=== PATIENT | female | born 1950 | race Caucasian/White ===

== ENCOUNTER → 2018-01-14 11:28 | Outpatient (CLI) | payer MEDICARE, SELFPAY ==
--- NOTE | 2018-01-14 | DI.RAD.S_ITS ---
PROCEDURE: XR SINUS MIN 3V INDICATIONS: HYPERTENSION, OTHER ACUTE SINUSITIS TECHNIQUE: 3 views of the sinuses were acquired. COMPARISON: [facility], MR, BRAIN WITHOUT CONTRAST, 04/14/2011, 17:08. FINDINGS: Sinuses: Frontal sinuses are hypoplastic. No ethmoidal or sphenoidal densities identified. The right maxillary antrum appears clear. The left maxillary sinus is clouded and suspect for chronic sinusitis. There was minimal mucous membrane thickening in left maxillary sinus on prior MRI imaging. There is slight nasal septal deviation to the right. Mastoids appear to be clear. Bones: No suspicious bony lesions. Nasal septum is midline. IMPRESSION: 1. Probable left maxillary sinusitis. Suggest CT sinus series for further evaluation. Dictated by: James Rangel M.D. on 01/14/2018 at 12:01 Approved by: James Rangel M.D. on 01/14/2018 at 12:05
--- NOTE | 2018-01-14 | DI.RAD.S_ITS ---
PROCEDURE: XR CHEST 2V INDICATIONS: HYPERTENSION, OTHER ACUTE SINUSITIS TECHNIQUE: 2 views of the chest were acquired. COMPARISON: None. FINDINGS: Surgical changes and devices: None. Lungs and pleura: No pleural effusions or pneumothorax. Lungs are clear. Mediastinum: Mediastinal contours are normal. Heart size is normal. Bones and chest wall: No suspicious bony abnormalities. Soft tissues appear unremarkable. IMPRESSION: No acute cardiopulmonary disease. Dictated by: Edgardo Peace RRA Interpreted: Latisha Sullivan MD on 01/14/2018 at 11:50 Approved by: Latisha Sullivan M.D. on 01/14/2018 at 16:26
== END ==
PROVIDERS: PCP Family Medicine; Visit Provider Family Medicine
DX: J01.90 Acute sinusitis, unspecified (principal); I10 Essential (primary) hypertension
CPT/HCPCS: 70220; 71046

== ENCOUNTER → 2018-01-20 09:20 | Outpatient (CLI) | payer MEDICARE, SELFPAY ==
--- NOTE | 2018-01-20 | DI.CT.S_ITS ---
PROCEDURE: CT SINUS SCREEN WO CON INDICATIONS: SINUSITIS TECHNIQUE: Noncontrast 3.0 mm axial images acquired from the frontal sinuses to the mid-sella, with coronal and sagittal reformats. For radiation dose reduction, the following was used: automated exposure control, adjustment of mA and/or kV according to patient size. COMPARISON: None. FINDINGS: Image quality: Excellent. Maxillary Sinuses: No bony remodeling or destruction. Bilateral medial wall resection of the medial martell of bilateral maxillary sinuses as the performed. Mild maxillary sinus mucosal thickening bilaterally. Ethmoid Air Cells: No bony remodeling or destruction. Small retention cyst within the left mid ethmoid air cells. Sinuses are otherwise clear. Sphenoid Sinuses: No bony remodeling or destruction. Sinuses are clear. Frontal Sinuses: No bony remodeling or destruction. Sinuses are clear. Ostiomeatal Complexes: Ostiomeatal complexes are patent. No Peter cells. Miscellaneous: Visualized intra-orbital contents are normal. No turbinectomy has been performed. Aaron bullosa of the left inferior turbinate is present. No paradoxical turbinate curvature. No nasal septal deviation. IMPRESSION: 1. Postsurgical sequelae. 2. Mild maxillary sinus mucosal thickening bilaterally. 3. Left inferior turbinate aaron bullosa. Dictated by: Namrata Gomez M.D. on 01/20/2018 at 10:23 Approved by: Namrata Gomez M.D. on 01/20/2018 at 10:26
== END ==
PROVIDERS: PCP Family Medicine; Visit Provider Family Medicine
DX: J32.9 Chronic sinusitis, unspecified (principal); J34.89 Other specified disorders of nose and nasal sinuses
CPT/HCPCS: 70486

== ENCOUNTER → 2020-04-30 12:55 | Outpatient (CLI) | payer MEDICARE, SELFPAY ==
--- NOTE | 2020-04-30 | DI.RAD.S_ITS ---
PROCEDURE: XR KNEE LT 3V INDICATIONS: LEFT KNEE PAIN TECHNIQUE: 3 views of the knee were acquired. COMPARISON: None. FINDINGS: Bones: No fractures or dislocations. Tricompartmental degenerative changes of the left knee with mild medial joint space narrowing. Degenerative changes noted in the medial patellofemoral compartment. No suspicious bony lesions. Soft tissues: Small joint effusion. No suspicious soft tissue calcifications. IMPRESSION: Tricompartmental osteoarthrosis of the left knee. No acute osseous abnormalities. Small joint effusion. Dictated by: Volodymyr Ramirez M.D. on 04/30/2020 at 16:58 Approved by: Volodymyr Ramirez M.D. on 04/30/2020 at 16:59
== END ==
PROVIDERS: PCP Family Medicine; Referring Provider Family Medicine; Visit Provider Family Medicine
DX: M25.562 Pain in left knee (principal); M17.12 Unilateral primary osteoarthritis, left knee; M25.462 Effusion, left knee
CPT/HCPCS: 73562

== ENCOUNTER 2021-01-27 16:20 | Emergency (ER) | payer MEDICARE, SELFPAY ==
[2021-01-27 16:43] VITALS: BP 185/81; PULSE 91; RESP 16; TEMP 36.7; O2SAT 99; BMI 32.3
--- NOTE | 2021-01-27 18:28 | ED_ITS ---
HPI - Back Pain/Injury General Chief Complaint: Back Pain/Injury Stated Complaint: low back/left leg pain to toes Time Seen by Provider: 01/27/21 18:07 History of Present Illness HPI Narrative: 70-year-old female nonsmoker with noncontributory medical history presents with her in the chief complaint of worsening pain in her left lower back with radiation down her left leg. She denies any specific injury or trauma. She states that it started the morning after she had been lifting some objects on her deck but nothing was too heavy and she does not remember any specific event. She has worsening pain with motion and improves with rest. She states it is sharp and stabbing pain that radiates down her leg. She denies any numbness, tingling or weakness. She denies any loss of control of bowel or bladder, extremity weakness or footdrop. She takes no blood thinners and denies any fever or chills. Related Data Previous Rx's Medication Instructions Recorded cyclobenzaprine 10 mg tablet 10 mg PO TID PRN #14 tab 01/27/21 gabapentin 300 mg capsule 300 mg PO BEDTIME #14 cap 01/27/21 hydrocodone 5 mg-acetaminophen 325 1 tab PO Q4-6H PRN #10 tab 01/27/21 mg tablet prednisone 10 mg tablet See Rx Instructions .ROUTE 01/27/21 .COMPLEX #30 tab Allergies Allergy/AdvReac Type Severity Reaction Status Date / Time No Known Drug Allergies Allergy Verified 01/27/21 16:47 Review of Systems Review of Systems Narrative: GENERAL: Denies chills, fatigue, malaise, fever, sweats. HEENT: Denies sinus pain, ear pain, sore throat, difficulty swallowing, dizziness. RESPIRATORY: Denies dyspnea, cough, wheezing, hemoptysis, sputum. CARDIOVASCULAR: Denies chest pain, palpitations, orthopnea, edema, GASTROINTESTINAL: Denies nausea, vomiting, abdominal pain, diarrhea, constipation, melena. : Denies dysuria, frequency, incontinence, hematuria, urinary retention. MUSCULOSKELETAL: See HPI SKIN: Denies rash, skin lesions, or other NEUROLOGIC: See HPI PSYCHIATRIC: No concerning psychosocial issues. 12 point review of systems is negative except for those stated above Exam Narrative Exam Narrative: GENERAL: [70] year old patient appears stated age. Well- developed patient, in mild distress. Obviously uncomfortable, rubbing her lower back HEAD: Atraumatic. Normocephalic. EYES: Pupils equal round and reactive. Extraocular motions intact. No scleral icterus. No injection or drainage. ENT: Nose without bleeding, purulent drainage. Throat without erythema, tonsillar hypertrophy or exudate. Airway patent. NECK: Trachea midline. Non tender CARDIOVASCULAR: Regular rate and rhythm without murmurs, gallops, or rubs. RESPIRATORY: Clear to auscultation. Breath sounds equal bilaterally. No wheezes, rales, or rhonchi. GASTROINTESTINAL: Abdomen soft, non-tender, nondistended. EXTREMITIES: No edema or joint tenderness. BACK: molding machine tender but free of any obvious external abnormalities. Patient exam notes decreased range of motion and muscle spasm, but no CVA tenderness, or vertebral point tenderness. There are no symptoms of cauda equina such as saddle anesthesia, and decreased reflexes, decreased sensation or strength. NEURO: AOx3. SKIN: No rash or erythema of visible areas Initial Vital Signs Initial Vital Signs: Vital Signs Temperature 98.1 F 01/27/21 16:43 Pulse Rate 91 H 01/27/21 16:43 Respiratory Rate 16 01/27/21 16:43 Blood Pressure 185/81 H 01/27/21 16:43 Pulse Oximetry 99 01/27/21 16:43 Course Orders Ordered: Discontinued Medications Hydrocodone Bitart/Acetaminophen (Hydrocodone/Acet 5/325 Tablet) 1 tab PO NOW ONE Stop: 01/27/21 18:41 Prednisone (Prednisone 20 Mg Tablet) 40 mg PO NOW ONE Stop: 01/27/21 18:41 Vital Signs Vital signs: Vital Signs - 8 hr 01/27/21 16:43 Temperature 98.1 F Pulse Rate 91 H Respiratory Rate 16 Blood Pressure 185/81 H Pulse Oximetry 99 MDM - Back Pain/Injury MDM Narrative Medical decision making narrative: Multiple etiologies of back pain considered including; Epidural abscess, cauda equina, mass occupying lesion, and other considered Discharge Plan Departure Patient Disposition: Home Clinical Impression: Acute back pain with radiculopathy Instructions: DI for Back Pain With Sciatica Activity Restrictions/Additional Instructions: *You have been diagnosed with [acute lumbar pain with radiculopathy] *What to do: *Please continue to take your regular medications as directed. [ x] New medication prescriptions sent to your pharmacy: [[facility] in [place]] [ ] New medication written as a paper prescription [ ] No new medications given *Please follow up with your primary care provider in 2-3 days, call for an appointment. Let them know you were seen in the Emergency Department and that we ask that you be seen in follow up. We will electronically transmit a record of today's note if your PCP is in our system *If you do not have a primary care provider please contact the [facility] Resource line at [phone]. They will ask some questions about your medical history and help get you set up with a doctor in the community. *Return to Emergency Department if you should have any new, worsening or concerning symptoms, such as [fever greater than 101 F, shaking chills, worsening pain, p loss of control of bowel or bladder, weakness in your extremities or other bothersome symptoms Prescriptions: New cyclobenzaprine 10 mg tablet 10 mg PO TID PRN (Reason: muscle spasm) Qty: 14 RF: 0 prednisone 10 mg tablet See Rx Instructions .ROUTE .COMPLEX Qty: 30 RF: 0 hydrocodone-acetaminophen 5-325 mg tablet 1 tab PO Q4-6H PRN (Reason: pain) Qty: 10 RF: 0 gabapentin 300 mg capsule 300 mg PO BEDTIME Qty: 14 RF: 0 Referrals: Jairon Lindsay MD [Primary Care Provider] -
[2021-01-27] MEDS: HYDROCODONE/ACET 5/325 TABLET 1 TAB PO (18:48)
[2021-01-27] MEDS: predniSONE 20 MG TABLET 40 MG PO (18:49)
[2021-01-27] MEDS: CYCLOBENZAPRINE 10 MG TABLET PO (19:50)
[2021-01-27] MEDS: CYCLOBENZAPRINE 10 MG PREPACK 1 BOTTLE MISC (20:20)
[2021-01-27] MEDS: OXYCODONE/APAP 5/325 PREPACK 1 BOTTLE MISC (20:20)
== END 2021-01-27 20:25 | disposition home or self-care (01) ==
PROVIDERS: Emergency Provider Emergency Medicine; PCP Family Medicine
DX: M54.16 Radiculopathy, lumbar region (principal)
CPT/HCPCS: 99283

== ENCOUNTER → 2021-01-31 14:12 | Outpatient (CLI) | payer MEDICARE, SELFPAY ==
--- NOTE | 2021-01-31 14:15 | DI.RAD.S_ITS ---
PROCEDURE: XR HIP W PEL IF DONE LT 2V INDICATIONS: LOW BACK PAIN TECHNIQUE: AP pelvis with lateral view(s) of the left hip(s). COMPARISON: None. FINDINGS: Bones: No fractures or dislocations. Pelvic ring appears intact. No suspicious bony lesions. Soft tissues: The visualized bowel gas pattern is normal. No suspicious soft tissue calcifications. IMPRESSION: Normal for age, source of current back pain symptoms is not seen. Dictated by: Aston Link M.D. on 01/31/2021 at 16:53 Approved by: Aston Link M.D. on 01/31/2021 at 16:53
--- NOTE | 2021-01-31 14:15 | DI.RAD.S_ITS ---
PROCEDURE: XR LUMBAR SPINE 2-3V INDICATIONS: LOW BACK PAIN TECHNIQUE: 3 views of the lumbar spine were acquired. COMPARISON: None. FINDINGS: Bones: 5 [id number]-[id number] vertebrae are present. There is abnormal bony alignment at L5-S1 where grade 2 anterolisthesis of L5 is present related to degenerative facet osteoarthritis and disc height reduction allowing ligamentous laxity at this level.. No vertebral body compression fractures. No suspicious bony lesions. Soft tissues: Overlying bowel gas pattern is normal. No suspicious soft tissue calcifications. IMPRESSION: Mild degenerative disc disease to the L5-S1 level where moderately severe disc height reduction is associated with facet osteoarthritis and anterior subluxation of L5 on S1, grade 2. Significant spinal and foraminal stenosis would be expected at this level and likely is also present at L4-5. Dictated by: Aston Link M.D. on 01/31/2021 at 16:51 Approved by: Aston Link M.D. on 01/31/2021 at 16:52
== END ==
PROVIDERS: PCP Family Medicine; Referring Provider Family Medicine; Visit Provider Family Medicine
DX: M51.27 Other intervertebral disc displacement, lumbosacral region (principal); M47.817 Spondylosis without myelopathy or radiculopathy, lumbosacral region
CPT/HCPCS: 72100; 73502

== ENCOUNTER → 2022-01-23 14:14 | Outpatient (CLI) | payer MEDICARE, SELFPAY ==
--- NOTE | 2022-01-23 | DI.RAD.S_ITS ---
PROCEDURE: XR SHOULDER LT MIN 2V INDICATIONS: Other specific arthropathies, not elsewhere classified, mult TECHNIQUE: 3 views of the shoulder were acquired. COMPARISON: None. FINDINGS: Bones: No fractures or dislocations. No suspicious bony lesions. Visualized ribs appear intact. Mild acromioclavicular and glenohumeral joint osteoarthritis. Soft tissues: No suspicious soft tissue calcifications. IMPRESSION: Mild osteoarthritis. No acute osseous lesion. If symptoms and/or clinical suspicion for pathology persists, further assessment with repeat radiographs (7-10 days) or advanced imaging (e.g. CT, MRI or bone scan) should be considered. Dictated by: Angelina Gonzáles MD, PhD on 01/23/2022 at 15:19 Approved by: Angelina Gonzáles MD, PhD on 01/23/2022 at 15:20
--- NOTE | 2022-01-23 | DI.RAD.S_ITS ---
PROCEDURE: XR FINGER RT MIN 2V INDICATIONS: Other specific arthropathies, not elsewhere classified, mult TECHNIQUE: AP hand, 2 views of the right hand fifth digit acquired. COMPARISON: None. FINDINGS: Bones: Joint space narrowing and spurring present at the at the 5th digit DIP joint. A small periarticular lucency is also present in this area. Similar changes present at other joints including the second digit DIP joint. No acute fracture visualized. Soft tissues: No suspicious soft tissue calcifications. IMPRESSION: Degenerative changes present at the 5th digit DIP joint. A small periarticular lucency is present indeterminate for subchondral cystic change or erosion. Inflammatory arthropathy cannot be excluded. Dictated by: Ti Vargas M.D. on 01/23/2022 at 17:49 Approved by: Ti Vargas M.D. on 01/23/2022 at 17:52
== END ==
PROVIDERS: PCP Family Medicine; Referring Provider Family Medicine; Visit Provider Family Medicine
DX: M75.52 Bursitis of left shoulder (principal); M12.89 Other specific arthropathies, not elsewhere classified, multiple sites
CPT/HCPCS: 73030; 73140

== ENCOUNTER → 2022-04-21 15:52 | Outpatient (CLI) | payer MEDICARE, SELFPAY ==
--- NOTE | 2022-04-21 15:54 | DI.MRI.S_ITS ---
PROCEDURE: MR SHOULDER LT WO CON INDICATIONS: Primary osteoarthritis, left shoulder TECHNIQUE: Noncontrast oblique coronal T2 fast spin echo with fat saturation, oblique sagittal T1 spin echo and T2 fast spin echo with fat saturation, axial T1 spin echo and T2 fast spin echo with fat saturation through the shoulder. COMPARISON: None. FINDINGS: Image quality: Excellent. Rotator cuff: There is focal high-grade likely full-thickness tearing of the supraspinatus tendon at the anterior footprint measuring 6 mm in anterior-posterior dimension. Mild proximal tendon retraction measures up to 5 mm. Moderate supraspinatus and infraspinatus tendinosis is seen. The teres minor tendon is intact. The subscapularis tendon also appears to be intact. No significant rotator cuff muscle atrophy. Bones and bursae: No acute trabecular bone injury or fracture. Small chronic traction cystic changes are seen in the posterosuperior humeral head. No focal glenohumeral cartilage defect. Moderate degenerative changes are seen at the acromioclavicular joint with marginal osteophyte formation and subchondral cystic changes. There is a small amount of subacromial/subdeltoid bursal fluid. No significant glenohumeral joint effusion is seen. Capsule and soft tissues: Suspected nondisplaced tearing of the posterosuperior to posteroinferior labrum, which is likely chronic. The proximal biceps long head tendon appears to be intact. There is partial effacement of the normal fat signal in the rotator interval. Glenohumeral ligaments are grossly intact. IMPRESSION: 1. Focal full-thickness tearing of the supraspinatus tendon at the anterior footprint measuring 6 mm in anterior-posterior dimension with mild proximal tendon retraction measuring 5 mm. Moderate supraspinatus and infraspinatus tendinosis. 2. 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 3. Moderate acromioclavicular joint osteoarthrosis. 4. Small subacromial/subdeltoid bursal effusion or bursitis. Dictated by: Ti Rivera M.D. on 04/22/2022 at 12:12 Approved by: Ti Rivera M.D. on 04/22/2022 at 12:18
== END ==
PROVIDERS: PCP Family Medicine; Referring Provider Orthopaedic Surgery; Visit Provider Orthopaedic Surgery
DX: M75.122 Complete rotator cuff tear or rupture of left shoulder, not specified as traumatic (principal); M19.012 Primary osteoarthritis, left shoulder
CPT/HCPCS: 73221

== ENCOUNTER → 2022-11-27 09:21 | Outpatient (CLI) | payer MEDICARE, SELFPAY ==
--- NOTE | 2022-11-27 | DI.US.S_ITS ---
PROCEDURE: US ABDOMEN COMPLETE INDICATIONS: ABNORMAL SERUM ENZYME LEVEL TECHNIQUE: Real-time scanning was performed of the abdominal and retroperitoneal organs, with image documentation. COMPARISON: None. FINDINGS: Liver: The liver is normal size measuring 16.9 cm in length. The parenchyma is mildly hyperechoic and dense. No visible liver mass. Appropriate direction of flow in the portal vein. Gallbladder: The gallbladder is normal without stones, sludge, wall thickening, or pericholecystic fluid. Biliary ducts: Intrahepatic bile ducts are non-dilated. Extrahepatic bile duct caliber measures 4.5 mm. Normal is 6-7 mm or less in diameter, or 10 mm or less post-cholecystectomy. Pancreas: Visualized portions of the pancreas are sonographically normal. The tail is obscured by bowel gas. Spleen: Spleen is normal in size and homogeneous in echotexture. Kidneys: Kidneys are normal in size and echotexture. Right kidney measures 9.7 cm long; left kidney measures 9.7 cm long. No hydronephrosis or nephrolithiasis. No solid masses. Aorta: Visualized aorta is normal in caliber at less than 3 cm. Iliacs: Proximal common iliac arteries are normal in caliber at less than 2.5 cm. IVC: Intrahepatic inferior vena cava is patent. Miscellaneous: No free abdominal fluid. IMPRESSION: 1. Mild hepatic parenchymal echogenicity suggesting steatosis or other intrinsic liver disease. 2. Normal biliary tree to the extent it is visualized. 3. Suboptimal visualization of the distal pancreas due to bowel gas. Dictated by: Chapis Land M.D. on 11/27/2022 at 14:21 Approved by: Chapis Land M.D. on 11/27/2022 at 14:24
--- NOTE | 2022-11-27 | DI.RAD.S_ITS ---
PROCEDURE: XR CHEST 2V INDICATIONS: chest pain TECHNIQUE: 2 views of the chest were acquired. COMPARISON: [facility], CR, XR CHEST 2V, 01/14/2018, 11:17. FINDINGS: Surgical changes and devices: Left humeral head surgical anchor. Lungs and pleura: Lungs are clear. No pleural effusions or pneumothorax. Mediastinum: Mediastinal contours are normal. Heart size is normal. Bones and chest wall: No suspicious bony abnormalities. Soft tissues appear unremarkable. IMPRESSION: No acute cardiopulmonary abnormality. Dictated by: Ti Vargas M.D. on 11/27/2022 at 11:25 Approved by: Ti Vargas M.D. on 11/27/2022 at 11:27
== END ==
PROVIDERS: PCP Family Medicine; Referring Provider Family Medicine; Visit Provider Family Medicine
DX: R07.9 Chest pain, unspecified (principal); R74.9 Abnormal serum enzyme level, unspecified
CPT/HCPCS: 71046; 76700

== ENCOUNTER 2023-02-23 16:37 | Emergency (ER) | payer MEDICARE, SELFPAY ==
[2023-02-23 17:04] VITALS: BP 152/70; PULSE 82; RESP 19; TEMP 36.8; O2SAT 96; BMI 33.3
--- NOTE | 2023-02-23 17:09 | DI.US.S_ITS ---
PROCEDURE: US PERIPH VENOUS LOW EXTREM LT INDICATIONS: r/o dvt TECHNIQUE: Real-time imaging, as well as color and pulse Doppler interrogation, were performed of the lower extremity deep veins from the inguinal ligament to the popliteal fossa. COMPARISON: None. FINDINGS: The common femoral, femoral and popliteal veins are normally compressible, and free of intraluminal thrombus. Color and pulse Doppler demonstrate normal phasic intraluminal flow. There is normal augmentation response to distal compression maneuver. IMPRESSION: No deep venous thrombosis. Dictated by: Maryjane Diggs M.D. on 02/23/2023 at 17:45 Approved by: Maryjane Diggs M.D. on 02/23/2023 at 17:48
--- NOTE | 2023-02-23 17:46 | ED_ITS ---
HPI - Extremity Problem <Lisa Farley PA-C - Last Filed: 02/23/23 18:56> General Chief complaint: Extremity Problem,Nontraumatic Stated complaint: lt leg pain / swelling Time Seen by Provider: 02/23/23 17:15 Source: patient Mode of arrival: Family Vehicle History of Present Illness HPI Narrative: 72-year-old woman presents with concern for left leg swelling and pain. Patient states that she normally walks a few miles a day and is fairly active, she was in [facility] with family on Wednesday and they went for about a mi or mi and half hike she does not remember sustaining any specific injuries but about an hour after the hike she felt pain in her left calf it felt very much like a cramp to her and was intense and sharp. This gradually resolved but has continued to be painful, it is worse with walking and pressing on the area. She feels that the pain has gradually been improving but yesterday noticed that her left calf seem to be swollen compared to her right. She talked to her primary care provider about it who recommended she come in for further evaluation for possible DVT. She denies any shortness of breath, chest pain, redness, heat in the area or any other symptoms. Related Data Previous Rx's Medication Instructions Recorded cyclobenzaprine 10 mg tablet 10 mg PO TID PRN muscle spasm #14 01/27/21 tabs gabapentin 300 mg capsule 300 mg PO BEDTIME #14 caps 01/27/21 hydrocodone 5 mg-acetaminophen 325 1 tab PO Q4-6H PRN pain #10 tabs 01/27/21 mg tablet prednisone 10 mg tablet See Rx Instructions .Route 01/27/21 .COMPLEX #30 tabs diclofenac sodium 1 % topical gel 4 g topical QID 10 days #100 grams 02/23/23 Allergies Allergy/AdvReac Type Severity Reaction Status Date / Time erythromycin base AdvReac Abdominal Verified 02/23/23 17:08 Pain Review of Systems <Lisa Farley PA-C - Last Filed: 02/23/23 18:56> Review of Systems Narrative: See HPI Patient History <Lisa Farley PA-C - Last Filed: 02/23/23 18:56> Social History Smoking Status: Never smoker Smoking Status: Never smoker alcohol intake frequency: holidays/special occasions only Substance Use Type: does not use Exam <Lisa Farley PA-C - Last Filed: 02/23/23 18:56> Narrative Exam Narrative: GENERAL: [72] year old patient appears stated age. Obese Well-developed patient, in mild distress. HEAD: Atraumatic. Normocephalic. EYES: Pupils equal round and reactive. Extraocular motions intact. No scleral icterus. No injection or drainage. ENT: Nose without bleeding, purulent drainage. Airway patent. NECK: Trachea midline. CARDIOVASCULAR: Regular rate and rhythm without murmurs, gallops, or rubs. RESPIRATORY: Clear to auscultation. Breath sounds equal bilaterally. No wheezes, rales, or rhonchi. GASTROINTESTINAL: Abdomen soft, non-tender, nondistended. EXTREMITIES: The left leg [id number] is moderately swollen as compared to the right, measured at 10 cm below the tibial tuberosity the left calf circumference is 41.5 cm the right calf circumference is 39.5 cm patient has tenderness with palpation over the mid posterior calf, she has normal active range of motion of the knee and ankle. There is no appreciable heat or erythema at the site of patient's tenderness or of the left affected calf. No other edema or joint tenderness. NEURO: AOx3. SKIN: No rash or erythema of visible areas Initial Vital Signs Initial Vital Signs: Vital Signs Temperature 98.3 F 02/23/23 17:04 Pulse Rate 82 02/23/23 17:04 Respiratory Rate 19 02/23/23 17:04 Blood Pressure 152/70 H 02/23/23 17:04 Pulse Oximetry 96 02/23/23 17:04 Oxygen Delivery Method Room Air 02/23/23 17:04 <Mahnaz Colin MD - Last Filed: 02/24/23 07:30> Initial Vital Signs Initial Vital Signs: Vital Signs Temperature 98.3 F 02/23/23 17:04 Pulse Rate 82 02/23/23 17:04 Respiratory Rate 19 02/23/23 17:04 Blood Pressure 152/70 H 02/23/23 17:04 Pulse Oximetry 96 02/23/23 17:04 Oxygen Delivery Method Room Air 02/23/23 17:04 Course <Lisa Farley PA-C - Last Filed: 02/23/23 18:56> Orders Ordered: ED Orders 02/23/23 17:09 US periph venous low extrem lt Stat Vital Signs Vital signs: Vital Signs - 8 hr 02/23/23 17:04 Temperature 98.3 F Pulse Rate 82 Respiratory Rate 19 Blood Pressure 152/70 H Pulse Oximetry 96 Oxygen Delivery Method Room Air <Mahnaz Colin MD - Last Filed: 02/24/23 07:30> Orders Ordered: ED Orders 02/23/23 17:09 US periph venous low extrem lt Stat Vital Signs Vital signs: Vital Signs - 8 hr 02/23/23 17:04 Temperature 98.3 F Pulse Rate 82 Respiratory Rate 19 Blood Pressure 152/70 H Pulse Oximetry 96 Oxygen Delivery Method Room Air MDM - Extremity (Nontraumatic) <ERIC Soliz-Ammy - Last Filed: 02/23/23 18:56> Imaging Data US - DVT: Radiologist's Impression: [address] [address] Ultrasound Report Signed Patient: Flores Alvarez MR#: [id number] : 1950 Acct:[id number] Age/Sex: 72 / F Date of Service: 02/23/23 Loc: ED Accession Number: [id number] ?? Procedure: US periph venous low extrem lt Ordering Provider: Leonid Galo MD PROCEDURE:? US PERIPH VENOUS LOW EXTREM LT ? INDICATIONS:? r/o dvt ? TECHNIQUE:? Real-time imaging, as well as color and pulse Doppler interrogation, were performed of the lower extremity deep veins from the inguinal ligament to the popliteal fossa.? ? COMPARISON:? None. ? FINDINGS:? The common femoral, femoral and popliteal veins are normally compressible, and free of intraluminal thrombus.? Color and pulse Doppler demonstrate normal phasic intraluminal flow.? There is normal augmentation response to distal compression maneuver. ? ? IMPRESSION:? No deep venous thrombosis. ? ? Dictated by: Maryjane Diggs M.D. on 02/23/2023 at 17:45 ? ? Approved by: Maryjane Diggs M.D. on 02/23/2023 at 17:48?? MDM Narrative Medical decision making narrative: This is a 72-year-old woman who presents with concern for possible DVT with left calf pain and swelling since Wednesday after hiking. Patient walks regularly and did not walk more than her usual on Wednesday. Pain began with a sharp sensation in her calf that felt a bit like cramping, but resolved on its own gradually has been improving but worse with walking, claudication is considered, she did have a DVT ultrasound which returned negative, I suspect that she has a muscle strain based on exam and history, she is seeing her primary care provider in the next 1-2 days and she is advised to discuss next steps with him. Patient does take ibuprofen as needed and she is advised she can take Tylenol and ibuprofen, also encouraged to try diclofenac to see if this relieves symptoms, consider compression stocking, continue with elevation of the leg whenever she is at rest and advised activity as tolerated. X-rays are not obtained today, she has no knee pain and no known injury. She does have a history of previous left ankle injury and chronic mild left ankle swelling. Return precautions provided, follow-up plan discussed, all questions answered. Discharge Plan Departure Patient Disposition: Home Clinical Impression: Muscle strain, Pain of left calf Activity Restrictions/Additional Instructions: *You have been diagnosed with [calf pain, likely muscle strain] *What to do: *Please continue to take your regular medications as directed. [1] New medication prescriptions sent to your pharmacy: [Diclofenac] [ ] New medication written as a paper prescription [ ] No new medications given *Please follow up with your primary care provider in 2-3 days, call for an appointment. Let them know you were seen in the Emergency Department and that we ask that you be seen in follow up. We will electronically transmit a record of today's note if your PCP is in our system. You came in today with concern for left calf pain and swelling, we did ultrasound to evaluate for DVT which returned negative. Based on her history and exam I suspect that you have a muscle injury/soft tissue injury. As we discussed you can take Tylenol and ibuprofen, I also prescribed diclofenac gel for your which is also available [id number], I am glad you are seeing your primary care provider in the next few days, I recommend talking to them about next steps I expect that these symptoms will resolve on their own in the next 7-10 days if this is just muscular soft tissue but if you have persistent pain or symptoms of course it is important to get re-evaluated and possibly have additional imaging done. *If you do not have a primary care provider please contact the [facility] Resource line at [phone]. They will ask some questions about your medical history and help get you set up with a doctor in the community. *Return to Emergency Department if you should have any new, worsening or concerning symptoms, such as [fever greater than 101 F, shaking chills, worsening pain, persistent vomiting or other bothersome symptoms] Prescriptions: New diclofenac sodium 1 % gel 4 g topical QID 10 Days Qty: 100 0RF Rx Instructions: apply to single knee, ankle, foot; for foot includes sole/toes/top of foot No Action cyclobenzaprine 10 mg tablet 10 mg PO TID PRN (Reason: muscle spasm) Qty: 14 0RF prednisone 10 mg tablet See Rx Instructions .ROUTE .COMPLEX Qty: 30 0RF Rx Instructions: Day 1,2,3: 40mg PO Daily Day 4,5,6: 30mg PO Daily Day 7,8,9: 20mg PO Daily Day 10,11,12: 10mg PO Daily #30 hydrocodone-acetaminophen 5-325 mg tablet 1 tab PO Q4-6H PRN (Reason: pain) Qty: 10 0RF gabapentin 300 mg capsule 300 mg PO BEDTIME Qty: 14 0RF Referrals: Jairon Lindsay MD [Primary Care Provider] - Stand Alone Forms: Patient Portal/API <Mahnaz Colin MD - Last Filed: 02/24/23 07:30> Cosign ED Attending Sylvesterature Attestation: I was immediately available in the department for consultation throughout this patient's visit. Mahnaz Colin MD
== END 2023-02-23 18:57 | disposition home or self-care (01) ==
PROVIDERS: Emergency Provider Student in an Organized Health Care Education/Training Program; PCP Family Medicine; Referring Provider Family Medicine
DX: S86.912A Strain of unspecified muscle(s) and tendon(s) at lower leg level, left leg, initial encounter (principal); M79.605 Pain in left leg
CPT/HCPCS: 93971; 99283

== ENCOUNTER → 2023-02-25 13:53 | Outpatient (CLI) | payer MEDICARE, SELFPAY ==
--- NOTE | 2023-02-25 | DI.RAD.S_ITS ---
PROCEDURE: XR TIBIA FIBULA LT 2V INDICATIONS: Pain in left leg TECHNIQUE: 2 views of the tibia and fibula were acquired. COMPARISON: None. FINDINGS: Bones: No fractures or dislocations. No suspicious bony lesions. Soft tissues: No suspicious soft tissue calcifications or masses. IMPRESSION: No acute osseous abnormality. Dictated by: Latisha Sullivan M.D. on 02/25/2023 at 21:11 Approved by: Latisha Sullivan M.D. on 02/25/2023 at 21:12
== END ==
PROVIDERS: PCP Family Medicine; Referring Provider Family Medicine; Visit Provider Family Medicine
DX: M79.605 Pain in left leg (principal)
CPT/HCPCS: 73590

== ENCOUNTER → 2024-02-03 07:06 | Outpatient (CLI) | payer MEDICARE, SELFPAY ==
--- NOTE | 2024-02-03 07:09 | DI.US.S_ITS ---
PROCEDURE: US PELVIC COMPLETE INDICATIONS: Pelvic and perineal pain TECHNIQUE: Real-time scanning was performed of the pelvic organs, with image documentation. Additional endovaginal scanning was necessary due to incomplete visualization of the adnexal and endometrial structures by transabdominal scanning. COMPARISON: None. FINDINGS: Uterus: Uterus is retroverted and normal in size at 5.3 x 2.9 x 4.1 cm. The myometrium is homogeneous. The endometrium measures 3 mm combined thickness. Trace fluid within the endometrium measuring 2 mm in thickness. Likely complex nabothian cyst measuring 9 x 5 x 8 mm within the cervix. Ovaries: The right ovary measures 1.4 x 0.9 x 1.0 cm, with a calculated ovarian volume of 0.7 cc. Right ovary is normal in appearance. The left ovary is not seen. No neck is a masses. Other: No pathologic free abdominal or pelvic fluid. IMPRESSION: No cause for patient's pain is identified. Likely complex nabothian cyst measuring 9 mm. Recommend follow-up ultrasound in 3-6 months to assess stability. Endometrium is normal in thickness. Trace fluid within the endometrium. Right ovary is normal in appearance. Left ovary is not seen. We strive to produce accurate, complete, and clear reports of imaging services. To assist us in improving patient care, this report was composed using standard report templates and voice recognition software. Therefore, it may contain abnormal punctuation, insertions and/or omissions. Occasional wrong-word or sound-alike substitutions may occur. Though we review the report and make efforts to correct it, we do recommend that the report be read carefully in proper context to recognize any text inaccuracies. Dictated by: Gregory Davidson M.D. on 02/03/2024 at 9:34 Approved by: Gregory Davidson M.D. on 02/03/2024 at 9:36
== END ==
LOC: US 07:09
PROVIDERS: PCP Family Medicine; Referring Provider Family Medicine; Visit Provider Family Medicine
DX: R10.2 Pelvic and perineal pain (principal)
CPT/HCPCS: 76856

== ENCOUNTER → 2024-06-16 06:28 | Outpatient (CLI) | payer MEDICARE, SELFPAY ==
--- NOTE | 2024-06-16 06:29 | DI.MRI.S_ITS ---
PROCEDURE: MR CERVICAL SPINE WO CON INDICATIONS: HEADACHE/NECK PAIN TECHNIQUE: Noncontrast sagittal T1 spin echo and T2 fast spin echo, sagittal STIR, foraminal oblique sagittal T2 fast spin echo, and axial gradient echo or T2 fast spin echo through the cervical spine. COMPARISON: None. FINDINGS: Image quality: Excellent. Alignment and Curvature: There is normal bony alignment. Bone Marrow: Marrow demonstrates normal overall signal. Spinal Cord: Visualized spinal cord has normal size and signal. No cerebellar tonsillar herniation. Paraspinous Soft Tissues: No paravertebral masses. Prevertebral soft tissues are normal in thickness. C2-C3: Disc desiccation and mild posterior disc osteophyte complex. Mild central canal stenosis. Facet uncovertebral arthropathy. Kjft-eo-cyvenstg right and no left neural foraminal stenosis. C3-C4: Disc desiccation and mild posterior disc osteophyte complex. Mild central canal stenosis. Facet and uncovertebral arthropathy. [id number] bilateral neural foraminal stenosis. C4-C5: Disc desiccation and posterior disc osteophyte complex abutting the ventral cord. Moderate central canal stenosis. Facet uncovertebral arthropathy. Severe bilateral neural foraminal stenosis. C5-C6: Disc desiccation and posterior disc osteophyte complex asymmetric to the right abutting and compressing the right aspect of the cord. Severe central canal stenosis. Facet and uncovertebral arthropathy. Severe left and moderate to severe right neural foraminal stenosis. C6-C7: Disc desiccation and posterior disc osteophyte complex. Mild central canal stenosis. Facet and uncovertebral arthropathy. Moderate left and mild right neural foraminal stenosis. C7-T1: No central canal or neural foraminal stenosis. IMPRESSION: 1. Multilevel degenerative changes of the cervical spine as described above. 2. Severe central canal stenosis at C5-C6. Moderate central canal stenosis at C4-C5. 3. Severe neural foraminal stenosis bilaterally at C4-C5 and on the left at C5-C6. Dictated by: Gregory Davidson M.D. on 06/16/2024 at 11:03 Approved by: Gregory Davidson M.D. on 06/16/2024 at 11:08
--- NOTE | 2024-06-16 06:29 | DI.MRI.S_ITS ---
PROCEDURE: MR HEAD/BRAIN WO CON INDICATIONS: HEADACHE/NECK PAIN TECHNIQUE: Non-contrast axial T1 spin echo, axial T2 fast spin echo, sagittal and axial FLAIR, coronal T2 fast spin echo, axial gradient echo, axial diffusion and ADC through the brain. COMPARISON: None. FINDINGS: Image quality: Excellent. CSF spaces: Ventricles appear symmetric in size and shape. Basal cisterns are patent. No extra-axial fluid collections. Brain: No intracranial bleeds or mass effects. There is cerebral volume loss for age. There are periventricular and deep white matter chronic small vessel ischemic changes. Brainstem appears normal. Diffusion-weighted images show no acute infarct. No chronic ischemic insults. Normal intravascular flow voids are present. Skull and face: Calvarial bone marrow is normal in signal. Orbits are normal. Sinuses: No significant paranasal sinus disease. Trace right mastoid effusion. IMPRESSION: No findings to explain patient's symptoms. No acute intracranial abnormalities. Age-appropriate global volume loss and chronic microvascular ischemic changes are present. Dictated by: Gregory Davidson M.D. on 06/16/2024 at 10:41 Approved by: Gregory Davidson M.D. on 06/16/2024 at 11:03
== END ==
PROVIDERS: PCP Family Medicine; Referring Provider Family Medicine; Visit Provider Family Medicine
DX: M47.812 Spondylosis without myelopathy or radiculopathy, cervical region (principal); R51.9 Headache, unspecified; M48.02 Spinal stenosis, cervical region
CPT/HCPCS: 70551; 72141